=== PATIENT | female | born 1965 | race Caucasian/White ===

== ENCOUNTER 2016-11-22 20:55 | Emergency (ER) | payer MEDICAID ==
[~2016-11-22] VITALS: Ht 162.6 cm; Wt 76.8 kg
[~2016-11-22 20:55] MED LIST: AZIT-14 PO
[2016-11-22] MEDS ORDERED: OMEPRAZOLE 20 MG CAPSULE.DR PO SCH (22:00)
[2016-11-22] MEDS ORDERED: PANTOPRAZOLE 20MG TABLET ONE (22:19)
[2016-11-22] MEDS ORDERED: PANTOPRAZOLE 20MG TABLET PO SCH (22:30)
[2016-11-22] MEDS ORDERED: PANTOPRAZOLE 20MG TABLET PO ONE (22:36)
[2016-11-22] MEDS ORDERED: RACEPINEPHRINE INH 2.25%, 0.5ML ONE (23:00)
[2016-11-22] MEDS ORDERED: RACEPINEPHRINE INH 2.25%, 0.5ML NPPB ONE (23:00)
[2016-11-22 23:42] VITALS: BP 124/77
== END 2016-11-22 23:49 | disposition home or self-care (01) ==
LOC: ED 21:46
DX: R04.2 Hemoptysis (principal)
CPT/HCPCS: 71020; 94640; 99284

== ENCOUNTER 2017-06-21 20:22 | Emergency (ER) | payer MEDICAID ==
[~2017-06-21] VITALS: Ht 162.6 cm; Wt 81.0 kg
[~2017-06-21 20:22] MED LIST changes: -AZIT-14 PO; +AZIT250T89 PO
[2017-06-21 20:24] VITALS: BP 130/79
[2017-06-21] MEDS ORDERED: DIAZEPAM 5 MG TABLET ONE (21:05)
[2017-06-21] MEDS ORDERED: FAMOTIDINE 20 MG TABLET ONE (21:06)
[2017-06-21] MEDS ORDERED: DIAZEPAM 5 MG TABLET PO ONE ×2 (21:30)
[2017-06-21] MEDS ORDERED: FAMOTIDINE 20 MG TABLET PO ONE (21:30)
== END 2017-06-21 21:39 | disposition home or self-care (01) ==
LOC: ED 21:33
DX: L24.9 Irritant contact dermatitis, unspecified cause (principal)
CPT/HCPCS: 99284; J7512; Q0177

== ENCOUNTER 2018-07-24 08:57 | Emergency (ER) | payer MEDICAID ==
[~2018-07-24] VITALS: Ht 162.6 cm; Wt 80.0 kg
[~2018-07-24 08:57] MED LIST changes: +GABA300C10 PO
[2018-07-24 09:01] VITALS: BP 117/70
== END 2018-07-24 10:15 | disposition home or self-care (01) ==
LOC: ED 10:09
DX: H65.02 Acute serous otitis media, left ear (principal)
CPT/HCPCS: 99283

== ENCOUNTER 2020-06-21 10:11 | Emergency (ER) | payer MEDICAID ==
[~2020-06-21] VITALS: Ht 162.6 cm; Wt 73.2 kg
[2020-06-21 10:15] VITALS: BP 124/78
--- NOTE | 2020-06-21 10:20 | NUR ---
Pt sob due to mechanical injury with exercise. No fever, n/v/d
[2020-06-21] MEDS ORDERED: KETOROLAC 30 MG/1 ML ONE (10:33)
[2020-06-21] MEDS ORDERED: OXYcodone/APAP 5/325MG TABLET ONE (10:34)
[2020-06-21] MEDS ORDERED: OXYcodone/APAP 5/325MG TABLET PO ONE (11:00)
[2020-06-21] MEDS ORDERED: KETOROLAC 30 MG/1 ML IM ONE (11:00)
== END 2020-06-21 11:46 | disposition home or self-care (01) ==
LOC: ED 11:36
DX: S20.212A Contusion of left front wall of thorax, initial encounter (principal); Z95.5 Presence of coronary angioplasty implant and graft; Z98.51 Tubal ligation status; Z90.89 Acquired absence of other organs; X58.XXXA Exposure to other specified factors, initial encounter; Y93.89 Activity, other specified; Y92.098 Other place in other non-institutional residence as the place of occurrence of the external cause; Y99.8 Other external cause status
CPT/HCPCS: 71101; 96372; 99283; J1885